=== PATIENT | male | born 1975 | race Caucasian/White ===

== ENCOUNTER → 2017-12-07 12:33 | Outpatient (CLI) | payer MEDICARE | END | disposition home or self-care (01) | LOC: D.CT 12:33 | DX: S92.102A Unspecified fracture of left talus, initial encounter for closed fracture (principal); X58.XXXA Exposure to other specified factors, initial encounter; Y93.9 Activity, unspecified; Y92.9 Unspecified place or not applicable ==

== ENCOUNTER 2019-04-11 07:55 | Emergency (ER) | payer MEDICARE, OTHER ==
[~2019-04-11] VITALS: Ht 162.6 cm; Wt 106.8 kg
[2019-04-11 08:09] VITALS: BP 149/107; Ht 162.6 cm; Wt 106.8 kg
[2019-04-11] MEDS ORDERED: TIROSINT13 MCG PO (08:30)
[2019-04-11] MEDS ORDERED: OMEPRAZOLE40 MG PO (08:30)
[2019-04-11] MEDS ORDERED: EFFEXOR75 MG PO (08:30)
[2019-04-11] MEDS ORDERED: LITHIUM CARBON300 MG PO (08:31)
[2019-04-11] MEDS ORDERED: PROPRANOLOL HCL20 MG PO (08:31)
[2019-04-11] MEDS ORDERED: ZIPSOR25 MG PO (08:32)
[2019-04-11] MEDS ORDERED: ZOCOR20 MG PO (08:33)
[2019-04-11] MEDS ORDERED: DEPAKOTE250 MG PO (08:33)
[2019-04-11] MEDS ORDERED: SYMBICORT 16010.2 GM INH (08:34)
[2019-04-11] MEDS ORDERED: SAPHRIS5 MG SL (08:34)
[2019-04-11 08:47] LABS: UDS - AMPHET NEGATIVE QUAL (NEGATIVE); UDS - BARB NEGATIVE QUAL (NEGATIVE); UDS - BENZO NEGATIVE QUAL (NEGATIVE); UDS - COCAINE NEGATIVE QUAL (NEGATIVE); UDS - OPIATE NEGATIVE QUAL (NEGATIVE); UDS - PCP NEGATIVE QUAL (NEGATIVE); UDS - THC NEGATIVE QUAL (NEGATIVE)
[2019-04-11 08:58] LABS: ALBUMIN 3.3 g/dL (3.4-5.0); ALKALINE PHOSPHATASE 96 U/L (46-116); ALT (SGPT) 26 U/L (10-68); BASOPHILS 0.3 % (0-2); BILIRUBIN - TOTAL 0.48 mg/dL (0.2-1.3); CALC OSMOLALITY 277 mosm/kg (275-300); CALCIUM 8.6 mg/dL (8.5-10.1); CARBON DIOXIDE 30.4 mmol/L (21.0-32.0); CHLORIDE - SERUM 103 mmol/L (98-107); CREATININE - SERUM 1.1 mg/dL (0.6-1.3); EOSINOPHILS 2.1 % (0-7); GLUCOSE 158 mg/dL (74-106); HEMOGLOBIN 14.8 g/dL (13.5-17.5); IMMATURE GRANULOCYTES 0.3 % (0-5); LYMPHOCYTES 27.9 % (15-50); MCHC 33.6 g/dL (31.0-37.0); MCV 95.2 fL (80.0-100.0); MEAN PLATELET VOLUME 10.9 fL (7.4-10.4); MONOCYTES 6.6 % (2-11); NEUTROPHILS 62.8 % (40-80); PLATELET COUNT 220 10x3/uL (130-400); POTASSIUM - SERUM 4.5 mmol/L (3.5-5.1); PROTEIN - SERUM 6.6 g/dL (6.4-8.2); RBC 4.62 10x6/uL (4.20-6.10); RDW 14.4 % (11.5-14.5); SODIUM 137 mmol/L (136-145); UREA NITROGEN 14 mg/dL (7-18); WBC 9.9 10x3/uL (4.8-10.8); eGFR NON AFRICAN AMERICAN 77 mL/min (90-120)
[2019-04-11 09:00] LABS: MAGNESIUM - SERUM 1.8 mg/dL (1.8-2.4)
[2019-04-11 09:12] LABS: APPEARANCE HAZY (CLEAR); BILIRUBIN NEGATIVE (NEGATIVE); COLOR DK YELLOW (YELLOW); GLUCOSE 50 mg/dL (NEGATIVE); KETONE SMALL mg/dL (NEGATIVE); NITRITE NEGATIVE (NEGATIVE); PROTEIN TRACE mg/dL (NEGATIVE); SPECIFIC GRAVITY 1.015 (1.005-1.020)
[2019-04-11 09:14] LABS: BACTERIA FEW /hpf (NONE SEEN); EPITHELIAL CELLS 0-5 /hpf (0-5); MUCUS <1+ /lpf (NONE SEEN); RED CELLS - URINE OCC /hpf (0-5); SPERMATOZOA PRESENT /hpf (NONE SEEN); WHITE CELLS - URINE 0-5 /hpf (0-5)
--- NOTE | 2019-04-11 09:25 | NUR ---
PATIENT VEHEMENTLY DENIES ANY SUICIDAL THOUGHTS OR PLANS. DR SMITH NOTIFIED AND REVIEWED PT'S BEHAVIOR AND ASSESSMENT RESULTS. PT IS A LOW RISK PER DR SMITH. DR SMITH STATED TO GIVE RESOURCES TO PT AT TIME OF DISCHARGE. NO FURTHER ORDERS AT THIS TIME. RESOURCES REVIEWED WITH PT AND HE VERBALIZED UNDERSTANDING.
== END 2019-04-11 10:17 | disposition other institution (70) ==
LOC: D.ER 07:55
PROVIDERS: Emergency Medicine
DX: R45.851 Suicidal ideations (principal); F41.9 Anxiety disorder, unspecified